=== PATIENT | female | born 1960 | race Caucasian/White ===

== ENCOUNTER 2023-03-07 01:39 | Day surgery (SDC) | payer OTHER, SELFPAY ==
[2023-02-23 13:46] VITALS: BMI 33.3
[2023-03-07 09:47] VITALS: BP 141/80; PULSE 88; RESP 18; TEMP 36.1; O2SAT 97
[2023-03-07] MEDS: LACTATED RINGERS 1,000 ML 150 ML IV CONT (10:06)
--- NOTE | 2023-03-07 10:24 | PM.HPGS ---
History of Present Illness History of Present Illness Consent: Risks, benefits, and alternatives have been discussed and questions answered. Patient agrees to proceed with procedure. Chief complaint: hx colon polyps Narrative: Herlinda Escobar is a 62 year old female Presents for screening colonoscopy. Patient's current weight appetite and bowel movements are normal. Patient denies abdominal pain. she has had no bleeding. Family history noncontributory. Patient does have a history of adenomatous colon polyp removed the time of colonoscopy in 2017. Review of Systems Review of Systems: Review of systems noncontributory. [facility] Surgical History Surgical History (Updated 03/01/23 @ 10:05 by Gabby Lacy, DOMINICK) History of endometrial ablation Family History Family History Mother Breast cancer Diabetes mellitus Other Breast cancer Social History Social History Years smoked: 35 Smoking status: Former smoker Tobacco type: cigarettes Second hand tobacco smoke exposure: No Smoking end date: 12/18/12 Alcohol intake: current Drinks per week: 6 Alcohol use details: Ocassionally Weekends Substance use: never Substance use type: does not use Living arrangements: with family Occupation/Education: retired Gender identity (if verbalized by the patient): Female Sexual Orientation (if Verbalized by the Patient): Straight or Heterosexual Spiritual care concerns: No Agree to blood products: Yes Meds Home Medications and Allergies Home Medications Medication Instructions Recorded Confirmed Type lorazepam 1 mg tablet 1 mg PO TID PRN anxiety #50 tabs 07/19/22 03/01/23 Rx rosuvastatin 20 mg tablet 20 mg PO DAILY #90 tabs 02/24/23 03/07/23 Rx doxycycline hyclate 100 mg capsule 100 mg PO BID 7 days #14 caps 03/01/23 03/07/23 Rx Allergies Allergy/AdvReac Type Severity Reaction Status Date / Time No Known Allergies Allergy Verified 03/07/23 09:44 Vital Signs Vital Signs - 24 hr 03/07/23 09:47 Temperature 97 F L Pulse Rate 88 Respiratory Rate 18 Blood Pressure 141/80 H Pulse Oximetry 97 Oxygen Delivery Room Air Exam Narrative: Physical exam reveals patient to be alert. Vital signs stable. HEENT exam is unremarkable. Patient is anicteric. Lungs are clear to auscultation and percussion. Heart is without murmur or extra sounds. Abdomen bowel sounds are present soft nontender with no organomegaly. Digital external rectal exam is normal. Assessment and Plan Assessment and plan (1) History of colon polyps: Code(s): Z86.010 - Personal history of colonic polyps Status: Acute Assessment and Plan: Patient has a history of colon polyps. Plan for surveillance colonoscopy at 5 year intervals. Further recommendations may be given after endoscopy.
--- NOTE | 2023-03-07 10:45 | P.PNAN_ITS ---
Anes - Initial Pre Proc Eval Procedure: Operation Date: 03/07/23 11:00 Proposed Procedures p Colonoscopy - Dom Clark MD Date/Time: 03/07/23 10:45 Surgeon: Dom Clark MD Pre Op Diagnosis: hx colon polyps Patient Data Age: 62 Gender: F Height: 1.65 m Weight: 91.6 kg Last Vital Signs Temp 97 F L 03/07/23 09:47 Pulse 88 03/07/23 09:47 Resp 18 03/07/23 09:47 BP 141/80 H 03/07/23 09:47 Pulse Ox 97 03/07/23 09:47 O2 Del Method Room Air 03/07/23 09:47 Allergies Allergy/AdvReac Type Severity Reaction Status Date / Time No Known Allergies Allergy Verified 03/07/23 09:44 Home Medications Medication Instructions Recorded Confirmed Type lorazepam 1 mg tablet 1 mg PO TID PRN anxiety #50 tabs 07/19/22 03/01/23 Rx rosuvastatin 20 mg tablet 20 mg PO DAILY #90 tabs 02/24/23 03/07/23 Rx doxycycline hyclate 100 mg capsule 100 mg PO BID 7 days #14 caps 03/01/23 03/07/23 Rx Patient hx anesthesia problems: none Family hx anesthesia problems: none Results Review: All pre-operative results and documents have been reviewed as part of the pre- operative evaluation. [facility] Surgical History Surgical History (Updated 03/01/23 @ 10:05 by Gabby Lacy APRN) History of endometrial ablation Family History Family History Mother Breast cancer Diabetes mellitus Other Breast cancer Social History Social History Years smoked: 35 Smoking status: Former smoker Tobacco type: cigarettes Second hand tobacco smoke exposure: No Smoking end date: 12/18/12 Alcohol intake: current Drinks per week: 6 Alcohol use details: Ocassionally Weekends Substance use: never Substance use type: does not use Living arrangements: with family Occupation/Education: retired Gender identity (if verbalized by the patient): Female Sexual Orientation (if Verbalized by the Patient): Straight or Heterosexual Spiritual care concerns: No Agree to blood products: Yes Anes - Eval Final PreProcedure Day of Procedure 03/07/23 10:45 Patient weight: obese Heart: regular rate and rhythm Lungs: clear to auscultation Airway: Mallampati scale class II Neurological: alert and oriented Last oral intake: >/= 8 hours ASA classification: II Emergent: no Anesthetic plan: proceed Anesthesia type and monitoring: general GIVS and standard monitoring Results Review: All pre-operative results and documents have been reviewed as part of the pre- operative evaluation. Informed Consent: The patient's anesthetic plan and its attendant risks and benefits were discussed with the patient/family/POA. Questions were solicited and answers provided to the satisfaction of the patient/family/POA.
[2023-03-07 11:30] VITALS: BP 90/58; PULSE 69; RESP 25; O2SAT 97
[2023-03-07 11:40] VITALS: BP 105/83; PULSE 66; RESP 19; O2SAT 100
[2023-03-07 11:50] VITALS: BP 105/70; PULSE 68; RESP 25; O2SAT 100
== END 2023-03-07 11:50 | disposition home or self-care (01) ==
PROVIDERS: PCP Family Medicine Adolescent Medicine; Visit Provider Internal Medicine Gastroenterology
PROC: 0DJD8ZZ Inspection of Lower Intestinal Tract, Via Natural or Artificial Opening Endoscopic (ICD-10-PCS; CPT 45378; principal; 2023-03-07 11:00)
DX: Z12.11 Encounter for screening for malignant neoplasm of colon (principal); D12.3 Benign neoplasm of transverse colon; K64.8 Other hemorrhoids; Z87.891 Personal history of nicotine dependence; E66.9 Obesity, unspecified; Z68.33 Body mass index [BMI] 33.0-33.9, adult
CPT/HCPCS: 45385; 88305; J7120

== ENCOUNTER → 2023-03-09 08:56 | Outpatient (CLI) | payer OTHER, SELFPAY ==
--- NOTE | ~2023-03-09 | US_ITS ---
Pelvic ultrasound. Clinical History: Postmenopausal bleeding Technique: Realtime transabdominal and transvaginal scanning of the pelvis was performed. Color flow Doppler and Doppler spectral analysis were performed. Findings: The uterus is retroverted, and measures 5.8 x 2.6 x 3.8 cm. The endometrial stripe has a t hickness of 4 mm. No focal mass is identified. Neither ovary seen. No adnexal mass seen. There is no evidence of free fluid in the cul de sac. Impression: No abnormal endometrial thickening identified. Reviewed, dictated and finalized at location . Impression: No abnormal endometrial thickening identified.
== END ==
PROVIDERS: PCP Nurse Practitioner Family; Visit Provider Nurse Practitioner Family
DX: N95.0 Postmenopausal bleeding (principal)
CPT/HCPCS: 76830; 76856

== ENCOUNTER 2024-04-29 17:40 | Emergency (ER) | payer OTHER, SELFPAY ==
--- NOTE | ~2024-04-29 | XR_ITS ---
EXAM: XR hand RT min 3V, XR wrist RT min 3V DATE: 04/29/2024 18:35 HISTORY: animal bite . COMPARISON: None available. FINDINGS: Normal mineralization. Question of cortical irregularity along the dorsal aspect of the fi rst carpal row, possibly in the region of the triquetrum. No lytic or blastic lesion. Mild scattered degenerative change. No erosion or periosteal change. Skin defects along the dorsal and medial wrist and lateral to the first CMC joint. Radiographic detail obscured by overlying bandage material. IMPRESSION: Questionable cortical irregularity of the triquetrum, deep to a skin puncture/laceration. Consider CT of the wrist (or wrist and hand depending on the areas of superficial injury) to exclude osseous involvement. Reviewed, dictated and finalized at location K. E CIRCUIT OPERATOR IMPRESSION: Questionable cortical irregularity of the triquetrum, deep to a ski n puncture/laceration. Consider CT of the wrist (or wrist and hand depending on the areas of superficial injury) to exclude osseous involvement.
--- NOTE | ~2024-04-29 | CT_ITS ---
CT OF right hand EXAMINATION: CT hand RT wo con DATE: 04/29/2024 19:34 INDICATION: Animal bite TECHNIQUE: Computed tomography (CT) of the right hand was performed without intravenous contrast. Aut omated exposure control and iterative reconstruction technique were employed. The dose-length product was 592.07 mGy-cm. COMPARISON: X-ray right hand and wrist, same date FINDINGS: Skin defect over the dorsal, medial, and lateral wrist, with subcutaneous gas. Subcutaneous present along the dorsal aspect of the extensor tendons but not definitively within the tendons or t endon sheaths. No intra-articular gas. Normal mineralization. No fracture or dislocation. Mild scatte red degenerative changes. IMPRESSION: No acute osseous finding in the left hand. Skin defects and subcutaneous gas present along the medial, dorsal, and lateral wrist. The prior radiographic findings were likely related to degenerative changes. Reviewed, dictated and finalized at [facility] K. BAG MACHINE TENDER
[2024-04-29 17:53] VITALS: BP 146/96; PULSE 113; RESP 16; TEMP 36.5; O2SAT 99
[2024-04-29] MEDS: ONDANSETRON INJ 4 MG/2 ML VIAL IV PUSH (18:10)
[2024-04-29] MEDS: MORPHINE SULFATE (*CRX) 4 MG/ML INJ IV PUSH (18:11)
[2024-04-29] MEDS: WATER FOR IRRIGATION, STERILE 500 ML BOTTLE (18:26)
--- NOTE | 2024-04-29 19:57 | ED.ANIMALBIT ---
HPI - Animal Bite General Chief Complaint: Animal Bite Stated Complaint: dog bite Time Seen by Provider: 04/29/24 19:01 History of Present Illness HPI narrative: 63-year-old female presenting for evaluation of multiple dog bites to her right hand. She states she was trying to break up a fight between her to domestic a dogs. She sustained a laceration to the right wrist and 3 additional small ulcerations to the dorsum of the right hand. She is not up-to-date on her vaccines but the dogs are including rabies. Patient states her pain is minimal but she does have an open wound to her right upper extremity with exposed musculature and fatty tissue, no obvious tendinopathy or tendon injury. She has full range of motion of the right hand without any sensory deficits or motor deficits. This occurred approximately 30-40 minutes prior to arrival. Related Data Home Medications ?Medication ?Instructions ?Recorded ?Confirmed ?Last Taken ?Type Semaglutide 5 ml subcut 02/28/24 02/28/24 Unknown History Allergies Allergy/AdvReac Type Severity Reaction Status Date / Time No Known Allergies Allergy Verified 02/28/24 09:52 Review of Systems Review of Systems: As reviewed above in HPI [facility] Surgical History Surgical History History of endometrial ablation Family History Family History Mother Breast cancer Diabetes mellitus Lung cancer Other Breast cancer Father Lung cancer Sibling Lung cancer Social History Social History Years smoked: 35 Smoking status: Former smoker Tobacco type: cigarettes Second hand tobacco smoke exposure: No Smoking end date: 12/18/12 Alcohol intake: current Drinks per week: 6 Alcohol use details: Ocassionally Weekends Substance use: never Substance use type: does not use Living arrangements: with family Occupation/Education: retired Gender identity (if verbalized by the patient): Female Sexual Orientation (if Verbalized by the Patient): Straight or Heterosexual Spiritual care concerns: No Agree to blood products: Yes Exam Narrative: GENERAL: [Well-appearing, well-nourished, and in no acute distress.] HEAD: [Normocephalic, atraumatic.] EYES: [PERRLA and EOMI.] ENT: Nares clear, no rhinorrhea or epistaxis. Mucous membranes moist. NECK: Supple. CHEST: [Clear to auscultation. No respiratory distress.] HEART: [Regular rate and rhythm]. No murmur heard. [Normal peripheral pulses.] ABDOMEN: [Soft, nondistended], [nontender], [No rigidity or guarding] EXTREMITIES: Full range of motion of the right upper extremity, able to flex and extend at each digit and joint of the right hand including MCP PIP and D IP joints equal and symmetrically compared to the left hand. Able to make an okay sign, thumbs up sign and oppose each digit without difficulty. Able to ulnar and radial deviate the wrist, flex and extend at the wrist. No appreciable weakness in any of the major muscle groups. SKIN: Large gash of approximately 6 cm to the dorsum of the right hand on the ulnar aspect that does not cross into the palmar surface. Exposed musculature and soft tissues underneath but no obvious tendon exposure or tendon injury. Three linear lacerations measuring 4, 5 and 6 cm respectively over the radial aspect of the dorsum of the right hand without as deep of involvement, more superficial but do expose the subcutaneous tissue and fat with the larger wound exposing musculature and no obvious tendon injury or exposure. NEURO: [No focal deficits]. Alert and oriented [x3.] PSYCH: [Normal mood and affect.] Course Vital Signs Vital signs: Vital Signs Temperature 36.5 C 04/29/24 17:53 Pulse Rate 113 H 04/29/24 17:53 Respiratory Rate 16 04/29/24 17:53 Blood Pressure 146/96 H 04/29/24 17:53 Pulse Oximetry 99 04/29/24 17:53 Temperature 36.5 C 04/29/24 17:53 Pulse Rate 97 04/29/24 22:29 Respiratory Rate 14 04/29/24 22:29 Blood Pressure 138/86 04/29/24 22:29 Pulse Oximetry 100 04/29/24 22:29 Procedures Laceration Laceration 1: Date: 04/29/24 Time: 20:37 Site: hand Side (If applicable): right Size (cm): 6 Description: linear and contaminated Depth: involves muscle layer and involves tendon Local Anesthetic: lidocaine 2% Amount of anesthesia used (mL): 10 Pre-repair: wound explored, irrigated extensively, minor debridement and deep structures intact ====== Skin Level ====== Skin layer closed with: nylon Size (cm): 5-0 Number of sutures: 9 Technique: simple, interrupted ====== Subcutaneous Layer ====== ====== Muscle Layer ====== Muscle layer closed with: vicryl Size: 5-0 Number of sutures: 3 Technique: simple, interrupted ====== Tendon Layer ====== Dressing: Sterile dressing and Jose wrap Laceration 2: Date: 04/29/24 Time: 20:37 Site: hand Side (If applicable): right Size (cm): 6 Description: linear and contaminated Depth: involves muscle layer Local Anesthetic: lidocaine 2% Amount of anesthesia used (mL): 5 Pre-repair: wound explored, irrigated extensively, minor debridement and deep structures intact ====== Skin Level ====== Skin layer closed with: nylon Size (cm): 5-0 Number of sutures: 8 Technique: simple, interrupted ====== Subcutaneous Layer ====== ====== Muscle Layer ====== ====== Tendon Layer ====== Dressing: Sterile bandage and gauze and Jose wrap Laceration 3: Date: 04/29/24 Time: 20:37 Site: hand Side (If applicable): right Size (cm): 5 Description: linear Depth: simple, single layer Local Anesthetic: lidocaine 2% Amount of anesthesia used (mL): 5 Pre-repair: wound explored, irrigated extensively and minor debridement ====== Skin Level ====== Skin layer closed with: nylon Size (cm): 5-0 Number of sutures: 7 Technique: simple, interrupted ====== Subcutaneous Layer ====== ====== Muscle Layer ====== ====== Tendon Layer ====== Dressing: Sterile dressing and Jose wrap Laceration 4: Date: 04/29/24 Time: 20:37 Site: hand Side (If applicable): right Size (cm): 4 Description: linear and clean Depth: simple, single layer Local Anesthetic: none Pre-repair: wound explored and irrigated ====== Skin Level ====== Skin layer closed with: other (No significant subcutaneous involvement, left open per recommendations by Hand surgery and bandage applied over top with sterile gauze and dressing) ====== Subcutaneous Layer ====== ====== Muscle Layer ====== ====== Tendon Layer ====== MDM - Animal Bite MDM Narrative Medical decision making narrative: 63-year-old female presenting with dog bite to her right hand with a total of 4 lacerations as described above. She is not up-to-date on her tetanus but the animals involved are domestic iand up to date on rabies vaccines. No pain or appreciable weakness or sensory deficits. She has full range of motion of the hand and digits. No restricted range of motion or any tendinopathy, weakness or any sensory deficits on her neurological and musculoskeletal examination. She is neurovascularly intact. She otherwise appears well not any acute pain at this time. The wounds will require extensive irrigation and closure most likely loose approximation based on the area of involvement. Will provide Augmentin for antibiotic coverage. X-rays were obtained which shows a potential triquetrum injury so a CT scan was recommended. CT scan without contrast the wrist was obtained. Patient's hand CT shows no acute osseous findings, skin defects and subcutaneous air along the medial dorsal and lateral wrist. Given patient's significant depth of injury and expose musculature I discussed the case with Hand surgery over at [facility] given that we do not have coverage here at the hospital at this time. Together we went over the patient's imaging studies, clinical assessment, plan of care going forward. Recommendations given the injury are to place the patient on Augmentin antibiotics and close the wound primarily with outpatient clinic follow-up instructions as well as strict return precautions. I discussed the case with the surgeon Dr. Puente at [facility] in [place]. I relayed this information to the patient and our plan going forward will be to primarily repair her injuries here. Please refer to extensive repair conducted above the procedure notes. Patient tolerated the procedure well and at this time is stable for discharge home with Augmentin and close hand surgery follow-up and clinic information. She was given very strict return precautions including developing increased pain or swelling in the digits, purulent drainage, signs of infection, redness, fever or any other concerns such as neuropathy or weakness in the hand. Patient verbalized understanding of these instructions and was stable for discharge home at this time. Differential Diagnosis Differential diagnosis: Likely bite by animal, dog bite and other Medical Records Attestation: I reviewed the patient's medical records. Imaging Data Attestation: I personally reviewed and interpreted this imaging study as follows: My impression: Impressions Hand X-Ray 04/29/24 18:48 IMPRESSION: Questionable cortical irregularity of the triquetrum, deep to a skin puncture/laceration. Consider CT of the wrist (or wrist and hand depending on the areas of superficial injury) to exclude osseous involvement. Wrist X-Ray 04/29/24 18:48 IMPRESSION: Questionable cortical irregularity of the triquetrum, deep to a skin puncture/laceration. Consider CT of the wrist (or wrist and hand depending on the areas of superficial injury) to exclude osseous involvement. Hand CT 04/29/24 19:51 IMPRESSION: No acute osseous finding in the left hand. Skin defects and subcutaneous gas present along the medial, dorsal, and lateral wrist. The prior radiographic findings were likely related to degenerative changes. Discharge Plan Discharge Clinical Impression: Dog bite of dorsum of hand, Complicated laceration of hand, Laceration of multiple sites of left hand and wrist Patient Disposition: Home, Self-Care Condition: Stable Instructions: Antibiotic Form, Animal Bite (ED), Care For Your Stitches (ED), Laceration (ED) Additional Instructions: Your wounds were repaired with extensive laceration stitches. Your imaging studies do not show any broken bones or 4 material. We have which on antibiotics that he need to complete the entirety of the course of. Follow-up in 7-10 days with the hand surgeon that we have referred you to. We also did speak to the [facility] orthopedic doctor who was covering hand surgery. You will also be able to follow-up with them if you cannot get an appointment with our plastic surgeon. If you develop any kind of pus, drainage, weakness, fever or any other concerning symptoms please return emergently to the ED. follow-up for wound care, wound evaluation and stitch removal in 7-10 days. Patient Language: Burmese Prescriptions: New amoxicillin-pot clavulanate 875-125 mg tablet 1 tablet PO Q12H 7 Days Qty: 14 0RF No Action Semaglutide 2.4 mL 5 ml subcut rosuvastatin 20 mg tablet See Rx Instructions .ROUTE .COMPLEX Qty: 90 3RF Dose Instruction: TAKE 1 TABLET DAILY Rx Instructions: TAKE 1 TABLET DAILY lorazepam 1 mg tablet 1 mg PO TID PRN (Reason: anxiety) Qty: 50 2RF Follow-up/Referrals: Howard Arreola MD [Physician] - 1 Week (Dog bite, wound evaluation, complicated repair) Gabby Lacy APRN [Primary Care Provider] - Time of Disposition: 22:02
[2024-04-29] MEDS: AMOXICILLIN/CLAVULANATE K 875-125 MG TAB 1 TABLET PO (20:18)
[2024-04-29] MEDS: TETANUS,DIPHTHERIA,AC PERTUSSIS ADULT (0.5 ML) BOOSTRIX IM (20:18)
[2024-04-29] MEDS: LIDOCAINE 1% LOCAL INJ 10 ML VIAL INFILTRATE (21:45)
[2024-04-29] MEDS: LIDOCAINE 2% LOCAL INJ 20 ML VIAL (21:45)
[2024-04-29 22:29] VITALS: BP 138/86; PULSE 97; RESP 14; O2SAT 100
--- OUTSIDE RECORDS SUMMARY | 2024-05-05 01:09 | XMS_ITS | Clinical Summary ---
Author Organization [facility] Address [address] [place] [address]. [place] [address] [place] [address] Care Team Providers Care Leather Lacer Name Role Phone Meche Gann MD Primary Care Provider [phone] Encounters Date Type Department Care Team Description 04/18/2024 10:32 AM FUR BLENDER - 04/18/2024 11:59 PM FUR BLENDER Hospital Encounter [facility] Mammography [address] [place] [address] Meche Gann MD Discharge Disposition: Home or Self Care (Routine Discharge) 04/18/2024 Travel from Last 3 Months Family History Medical History Relation Comments Breast Cancer Maternal Aunt 1 Breast Cancer Maternal Aunt 2 age of onset unk nown Breast Cancer Mother Relation Status Comments Maternal Aunt 1 Maternal Aunt 2 Mother Social History Tobacco Use Types Packs/Day Years Used Date Smoking Tobacco: Never Assessed Comments Unknown Sex and Gender Information Value Date Recorded Sex Assigned at Not on file Legal Sex Female 6:47 PM CDT Gender Identity Not on file Sexual Orientation Not on file Plan of Treatment Upcoming Encounters Date Type Department Care Team (Late st Contact Info) Description 05/18/2024 10:00 AM FUR BLENDER Appointment [facility] [place] [address] Gabby Lacy, QUEBRACHO TANNER [address] [place] [address] 05/18/2024 10:30 AM FUR BLENDER Appointment [facility] Mammography [address] [address] Gabby Lacy, QUEBRACHO TANNER [address] [place], [place] [id number] Health Maintenance Due Date Last Done Comments Cervical Cancer Screening Pap Smear (Age 30 to 64) Every 3 Years 1961 Colorectal Cancer Screening Colonoscopy (10 Years) 1961 Annual Physical 1964 Hepatitis C 09/30/1979 DTaP, Tdap and Td Vaccines (1 - Tdap) 1980 Cervical Cancer Screening Pap with HPV Testing (Age 30 to 64) Every 5 Years 09/30/1991 Cervical Cancer Screening with HPV 09/30/1991 Zoster Vaccines (1 of 2) 09/30/2011 COVID-19 Vaccine ( season) 2024 04/28/2021, 08/26/2020, 07/29/2020 Mammogram Screening 04/18/2026 04/18/2024, 02/28/2023, 01/07/2022, Additional history exists RSV Immunization or 60+ Years (1 - 1-dose 75+ series) 2036 Influenza Adult Completed 03/06/2024, 04/15, 03/04/2020 Meningococcal Vaccine Aged Out No jacob dorita eligible based on patient's age to complete this topic Pneumococcal Vaccine: Pediatrics (0 to 5 Years) and At-Risk Patients (6 to 64 Years) Aged Out No longer eligible based on patient's age to complete this topic RSV Immunizations Under 20 Months Aged Out No longer eligible based on patient's age to complete this topic Procedures Procedure Name Priority Date/Time Associated Diagnosis Comments MG SCREENING W AVIVA WANDA DIGI Routine 04/18/2024 10:50 AM FUR BLENDER Encounter for screening mammogram for malignant neoplasm of breast from Last 3 Months Results * MG SCREENING W AVIVA WANDA DIGI (04/18/2024 10:50 AM FUR BLENDER) Anatomical Region Laterality Modality Breast Bilateral Mammography 04/18/2024 3:08 PM FUR BLENDER Impressions 04/18/2024 3:15 PM FUR BLENDER ===== IMPRESSION: ===== 1. ??Stable mammographic appearance with no new findings to suggest malignancy in either breast. Assessment: ACR BI-RADS 2 - BENIGN FINDING(S) Recommendation: 1:Routine Screening Bilateral Comments: Ordered By: MECHE GANN Interpreted By: Sebastian Ramirez, 04/18/2024 3:08 PM Narrative 04/18/2024 3:15 PM FUR BLENDER [address] [address] EXAMINATION: Digital bilateral screening mammogram with 3-D tomosynthesis EXAM DATE/TIME: 04/18/2024 10:33 AM REASON FOR EXAM: ??Routine screening ?? Benign left-sided stereotactic biopsy in 2006. Breast carcinoma in mother at age 67 maternal aunt at age 60. COMPARISON: 01/07/2022. 02/28/2023 Technique: Digital screening mammography of both breasts was performed in addition to 3-D Tomosynthesis technique. This study was read with the assistance of a computer-aided detection system. Tissue density: The breasts are heterogeneously dense, which may obscure small masses. Findings: Left breast biopsy clip. There is no new focal asymmetry, dominant mass lesion, area of skin thickening, or cluster of suspicious appearing calcifications in either breast to suggest malignancy. us Meche Gann MD MAMMO Final Resu lt from Last 3 Months Insurance [facility] Care Teams Leather Lacer Relationship Specialty Start Date End Date Meche Gann MD [phone] [address] PCP - General 10/14/16
--- OUTSIDE RECORDS SUMMARY | 2024-05-05 01:10 | XMS_ITS | Encounter Summary ---
Author Organization [facility] Address [address] [place] [address]. [place], [place] [phone] [place] [address] Care Team Providers Care Cord Splicer Name Role Phone Ramiro Gann MD Primary Care Provider +1- [phone] Encounter Details Date Type Department Care Team (Latest Contact Info) Description 01/07/2022 Travel Social History Tobacco Use Types Packs/Day Years Used Date Smoking Tobacco: Never Assessed Comments Unknown Sex and Gender Information Value Date Recorded Sex Assigned at Not on file Legal Sex Female 6:47 PM CDT Gender Identity Not on file Sexual Orientation Not on file COVID-19 Exposure Response Date Recorded In the last 10 days, have yo u been in contact with someone who was confirmed or suspected to have Coronavirus/COVID-19? No / Unsure 01/07/2022 9:30 AM CDT documented as of this encounter Plan of Treatment Upcoming Encounters Date Type Department Care Team (Late st Contact Info) Description 05/18/2024 10:00 AM ELECTRIC BLANKET WIRER [place]ment [place] [address] Gabby Lacy, BLEACHER [place] PULP [address] [place] [address] 05/18/2024 10:30 AM ELECTRIC BLANKET WIRER Appointment [place] [address] Gabby Lacy, BLEACHER [place] PULP [address] [place] [address] documented as of this encounter Visit Diagnoses Not on filedocumented in this encounter Care Teams Cord Splicer Relationship Specialty Start Date End Date Ramiro Gann MD [address] [address] PCP - General 10/14/16 documented as of this encounter
--- OUTSIDE RECORDS SUMMARY | 2024-05-05 01:10 | XMS_ITS | Encounter Summary ---
Author Organization [facility] Address [address] [place] [address]. [place], [place] [address] [place] [address] Care Team Providers Care Final Assembler Boat Name Role Phone Ramiro Gann MD Primary Care Provider +1- [phone] Encounter Details Date Type Department Care Team (Latest Contact Info) Description 02/28/2023 Travel Social History Tobacco Use Types Packs/Day Years Used Date Smoking Tobacco: Never Assessed Comments Unknown Sex and Gender Information Value Date Recorded Sex Assigned at Not on file Legal Sex Female 6:47 PM CDT Gender Identity Not on file Sexual Orientation Not on file documented as of this encounter Plan of Treatment Upcoming Encounters Date Type Department Care Team (Late st Contact Info) Description 05/18/2024 10:00 AM COVER INSPECTOR [place]ment [place] [address] Gabby Lacy MACHINE GROUP LEADER [address] [place], [place] [id number] 05/18/2024 10:30 AM COVER INSPECTOR Appointment [place] [address] Gabby Lacy NP [address] [place], [place] [phone] documented as of this encounter Visit Diagnoses Not on filedocumented in this encounter Care Teams Final Assembler Boat Relationship Specialty Start Date End Date Ramiro Gann MD [address] [address] PCP - General 10/14/16 documented as of this encounter
--- OUTSIDE RECORDS SUMMARY | 2024-05-05 01:10 | XMS_ITS | Encounter Summary ---
Author Organization [facility] Address [address] [place] [address]. [id number] [place] [address] Care Team Providers Care Installation Tech Name Role Phone Meche Gann MD Primary Care Provider +1- [phone] Reason for Referral * Imaging (Routine) - New Request Specialty Diagnoses / Procedures Referred By Rekha vilchis Referred To Contact RADIOLOGY Diagnoses Encounter for screening mammogram for malignant neoplasm of breast Procedures MG SCREENING W Meche Griffin MD [address] [place] [address] Phone: tel: fax: Referral ID Status Reason Start Date Expiration Date V isits Requested Visits Authorized [id number] New Request 04/13/2024 06/13/2025 1 1 RECONDITIONER Reason for Visit * Imaging (Routine) - New Request Specialty Diagnoses / Procedures Referred By Rekha vilchis Referred To Contact RADIOLOGY Diagnoses Encounter for screening mammogram for malignant neoplasm of breast Procedures MG SCREENING W Meche Griffin MD [address] [place] [address] Phone: tel: fax: Referral ID Status Reason Start Date Expiration Date V isits Requested Visits Authorized [id number] New Request 04/13/2024 06/13/2025 1 1 Encounter Details Date Type Department Care Team (Latest Contact Info) Description 04/18/2024 10:32 AM SHOE RECONDITIONER - 04/18/2024 11:59 PM SHOE RECONDITIONER Hospital Encounter [facility] Mammography [address] [place] [address] Meche Gann MD [address] [address] Discharge Disposition: Home or Self Care (Routine Discharge) Social History Tobacco Use Types Packs/Day Years [...] st Contact Info) Description 05/18/2024 10:00 AM SHOE RECONDITIONER Appointment [facility] [place] [address] Gabby Lacy, MANAGER LICENSING [address] [place] [address] 05/18/2024 10:30 AM SHOE RECONDITIONER Appointment [facility] [place] [address] Gabby Lacy, MANAGER LICENSING [address] [place] [address] documented as of this encounter Procedures Procedure Name Priority Date/Time Associated Diagnosis Comments MG SCREENING W AVIVA WANDA DIGI Routine 04/18/2024 10:50 AM SHOE RECONDITIONER Encounter for screening mammogram for malignant neoplasm of breast documented in this encounter Results * MG SCREENING W AVIVA WANDA DIGI (04/18/2024 10:50 AM SHOE RECONDITIONER) Anatomical Region Laterality Modality Breast Bilateral Mammography 04/18/2024 3:08 PM SHOE RECONDITIONER Impressions 04/18/2024 3:15 PM SHOE RECONDITIONER ===== IMPRESSION: ===== 1. ??Stable mammographic appearance with no new findings to suggest malignancy in either breast. Assessment: ACR BI-RADS 2 - BENIGN FINDING(S) Recommendation: 1:Routine Screening Bilateral Comments: Ordered By: MECHE GANN Interpreted By: Sebastian Ramirez, 04/18/2024 3:08 PM Narrative 04/18/2024 3:15 PM SHOE RECONDITIONER [address] [id number] EXAMINATION: Digital bilateral screening mammogram with 3-D [...] calcifications in either breast to suggest malignancy. Meche Gann MD MAMMO Final Resu lt documented in this encounter Visit Diagnoses Diagnosis Encounter for screening mammogram for malignant neoplasm of breast Other screening mammogram documented in this encounter Care Teams Installation Tech Relationship Specialty Start Date End Date Meche Gann MD [address] [place] [address] PCP - General 10/14/16 documented as of this encounter
--- OUTSIDE RECORDS SUMMARY | 2024-05-05 01:10 | XMS_ITS | Encounter Summary ---
Author Organization [facility] Address [address] [place] [address]. [place], [place] [address] [place] [address] Care Team Providers Care Senior Drafter Name Role Phone Meche Gann MD Primary Care Provider +1- [phone] Reason for Referral * Imaging (Routine) - Closed Specialty Diagnoses / Procedures Referred By Rekha vilchis Referred To Contact RADIOLOGY Diagnoses Visit for screening mammogram Procedures MG SCREENING W Mehce Griffin MD [address] [place] [address] Phone: tel: fax: Referral ID Status Reason Start Date Expiration Date Visits Re quested Visits Authorized [id number] Closed 02/09/2023 04/11/2024 1 1 Reason for Visit * Imaging (Routine) - Closed Specialty Diagnoses / Procedures Referred By Rekha vilchis Referred To Contact RADIOLOGY Diagnoses Visit for screening mammogram Procedures MG SCREENING W Meche Griffin MD [address] [place] [address] Phone: tel: fax: Referral ID Status Reason Start Date Expiration Date Visits Re quested Visits Authorized [id number] Closed 02/09/2023 04/11/2024 1 1 Encounter Details Date Type Department Care Team (Latest Contact Info) Description 02/28/2023 9:44 AM CDT - 02/28/2023 11:59 PM CDT Hospital Encounter [facility] Mammography [address] [place] [address] Meche Gann MD [address] [place] [id number] Discharge Disposition: Home or Self Care (Routine [...] st Contact Info) Description 05/18/2024 10:00 AM CLOTH REELER Appointment [place] [address] Gabby Lacy GEAR HOBBER OPERATOR [address] [place] [address] 05/18/2024 10:30 AM CLOTH REELER Appointment [facility] [address] Gabby Lacy GEAR HOBBER OPERATOR [address] [place] [address] documented as of this encounter Procedures Procedure Name Priority Date/Time Associated Diagnosis Comments MG SCREENING W AVIVA WANDA DIGI Routine 02/28/2023 9:56 AM CDT Visit for screening mammogram documented in this encounter Results * MG SCREENING W AVIVA WANDA DIGI (02/28/2023 9:56 AM CDT) Anatomical Region Laterality Modality Breast Bilateral Mammography 02/28/2023 2:12 PM CDT Narrative 02/28/2023 2:13 PM CDT Examination: Digital screening mammogram with CAD. Clinical history: Asymptomatic patient presents for routine screening. Comparison: 01/07/2022, 03/06/2020, 10/25/2017, 10/14/2016. Technique: Bilateral digital mammograms. The exam was interpreted with the use of a computer-aided detection (CAD) system. ??Additional 3-D tomosynthesis images were acquired. Tissue density: The breast tissue is heterogeneously dense. Findings: The breast tissue is heterogeneously dense. The dense tissue may obscure some lesions mammographically. ?? Benign-appearing calcification noted. Metallic ring biopsy marker on the left again evident. No suspicious mass, microcalcification or area of architectural distortion can be identified. From a mammographic standpoint, routine followup in one year would seem adequate. IMPRESSION: No suspicious change since the previous exams. Recommendation: 1: Routine Screening ??Bilateral ??in 1 Year Assessment: ACR BI-RADS 2 - BENIGN FINDING(S) Ordered By: MECHE GANN Interpreted By: Jah Sierra MD, 02/28/2023 2:12 PM Meche Gann MD MAMMO Final Resu lt documented in this encounter Visit Diagnoses Diagnosis Visit for screening mammogram Other screening mammogram documented in this encounter Care Teams Senior Drafter Relationship Specialty Start Date End Date Meche Gann MD [address] [address] PCP - General 10/14/16 documented as of this encounter
--- OUTSIDE RECORDS SUMMARY | 2024-05-05 01:11 | XMS_ITS | Encounter Summary ---
Author Organization [facility] Address [address] [place] [address]. [place], [place] [address] [place] [address] Care Team Providers Care Sales Representative [employer] Name Role Phone Ramiro Gann MD Primary Care Provider + [phone] Ramiro Gann MD Primary Care Provider + [phone] Ramiro Gann MD Primary Care Provider + [phone] Ramiro Gann MD Primary Care Provider + [phone] Ramiro Gann MD Primary Care Provider + [phone] Ramiro Gann MD Primary Care Provider +- [phone] Encounter Details Date Type Department Care Team (Late st Contact Info) Description 03/02/2007 Abstract [facility] [address] [place] [address] Thong Marie MD [address] [id number] Social History Tobacco Use Types Packs/Day Years Used Date Smoking Tobacco: Never Assessed Comments Unknown Sex and Gender Information Value Date Recorded Sex Assigned at Not on file Legal Sex Female 6:47 PM CDT Gender Identity Not on file Sexual Orientation Not on file documented as of this encounter Plan of Treatment Upcoming Encounters Date Type Department Care Team (Late Contact Info) Description 05/18/2024 10:00 AM DIRECTOR OF AGRONOMY Appointment [facility] [place] [address] Gabby Lacy, REGISTRAR COLLEGE OR UNIVERSITY [address] [place] [address] 05/18/2024 10:30 AM DIRECTOR OF AGRONOMY Appointment [facility] [place] [address] Gabby Lacy, REGISTRAR COLLEGE OR UNIVERSITY [address] [place] [address] documented as of this encounter Visit Diagnoses Not on filedocumented in this encounter Care Teams Sales Representative [employer] Relationship Specialty Start Date End Date Ramiro Gann MD [address] [place] [address] PCP - General 10/14/16 Ramiro Gann MD [address] [place] [address] PCP - General 10/03/15 10/13/16 Ramiro Gann MD [address] [place] [address] PCP - General 09/26/14 10/02/15 Ramiro Gann MD [address] [place] [address] PCP - General 05/10/14 09/25/14 Ramiro Gann MD [address] [place] [address] PCP - General 05/03/14 05/09/14 Ramiro Gann MD [address] [place] [address] [place] [address] PCP - General 03/09/13 05/02/14 documented as of this encounter
--- OUTSIDE RECORDS SUMMARY | 2024-05-05 01:11 | XMS_ITS | Encounter Summary ---
Author Organization [facility] Address [address] [place] [address]. [employer] [place], [place] [address] [place] [address] Care Team Providers Care Tool Grinder Operator External Name Role Phone Ramiro Gann MD Primary Care Provider +1- [phone] Encounter Details Date Type Department Care Team (Latest Contact Info) Description 03/06/2020 Travel Social History Tobacco Use Types Packs/Day Years Used Date Smoking Tobacco: Never Assessed Comments Unknown Sex and Gender Information Value Date Recorded Sex Assigned at Not on file Legal Sex Female 6:47 PM CDT Gender Identity Not on file Sexual Orientation Not on file COVID-19 Exposure Response Date Recorded In the last month, have you been in contact with someone who was confirmed or suspected to have Coronavirus / COVID-19? No / Unsure 03/06/2020 2:33 PM CDT documented as of this encounter Plan of Treatment Upcoming Encounters Date Type Department Care Team (Late st Contact Info) Description 05/18/2024 10:00 AM NETWORK ENGINEER ADMINISTRATOR [place]ment [place] [address] Gabby Lacy, CUSTOM SHOE DESIGNER AND MAKER [address] [place], [place] [address] 05/18/2024 10:30 AM NETWORK ENGINEER ADMINISTRATOR Appointment [facility] [address] Gabby Lacy, CUSTOM SHOE DESIGNER AND MAKER [address] [place], [place] [phone] documented as of this encounter Visit Diagnoses Not on filedocumented in this encounter Care Teams Tool Grinder Operator External Relationship Specialty Start Date End Date Ramiro Gann MD [address] [address] PCP - General 10/14/16 documented as of this encounter
--- OUTSIDE RECORDS SUMMARY | 2024-05-05 01:11 | XMS_ITS | Encounter Summary ---
Author Organization [facility] Address [address] [place] [address]. [place], [place] [address] [place] [address] Care Team Providers Care General Repairer Name Role Phone Ramiro Gann MD Primary Care Provider + [phone] Ramiro Gann MD Primary Care Provider + [phone] Ramiro Gann MD Primary Care Provider + [phone] Ramiro Gann MD Primary Care Provider + [phone] Ramiro Gann MD Primary Care Provider + [phone] Ramiro Gann MD Primary Care Provider +- [phone] Encounter Details Date Type Department Care Team (Late st Contact Info) Description 03/09/2013 Abstract [facility] Diagnostic Imaging [address] [place] [address] Thong Marie MD [address] [id number] Social History Tobacco Use Types Packs/Day Years [...] (Late Contact Info) Description 05/18/2024 10:00 AM PLANT ELECTRICIAN Appointment [facility] [place] [address] Gabby Lacy, HEAD OF MOBILE [address] [place] [address] 05/18/2024 10:30 AM PLANT ELECTRICIAN Appointment [facility] [address] Gabby Lacy, HEAD OF MOBILE [address] [place] [address] documented as of this encounter Visit Diagnoses Diagnosis Encounter for screening mammogram for high-risk patient documented in this encounter Care Teams General Repairer Relationship Specialty Start Date End Date Ramiro Gann MD [address] [place] [address] PCP - General 10/14/16 Ramiro Gann MD [address] [place] [address] PCP - General 10/03/15 10/13/16 Ramiro Gann MD [address] [place] [address] PCP - General 09/26/14 10/02/15 Ramiro Gann MD [address] [place] [address] PCP - General 05/10/14 09/25/14 Ramiro Gann MD [address] [place] [address] PCP - General 05/03/14 05/09/14 Ramiro Gann MD [address] [address] PCP - General 03/09/13 05/02/14 documented as of this encounter
--- OUTSIDE RECORDS SUMMARY | 2024-05-05 01:11 | XMS_ITS | Encounter Summary ---
Author Organization [facility] Address [facility] [place] [address] [place] [address] Care Team Providers Care Executive Administrator Name Role Phone Ramiro Gann MD Primary Care Provider + [phone] Ramiro Gann MD Primary Care Provider + [phone] Ramiro Gann MD Primary Care Provider + [phone] Ramiro Gann MD Primary Care Provider + [phone] Encounter Details Date Type Department Care Team (Late st Contact Info) Description 05/10/2014 Abstract [facility] Diagnostic Imaging [address] [place], [place] [phone] Ramiro Gann MD [address] [address] Social History Tobacco Use Types Packs/Day Years [...] st Contact Info) Description 05/18/2024 10:00 AM PROCESS PROJECT ENGINEER Appointment [place] [address] Gabby Lacy, OB/GYN PHYSICIAN [address] [place] [address] 05/18/2024 10:30 AM PROCESS PROJECT ENGINEER Appointment [facility] Mammography [address] [place] [address] Gabby Lacy, OB/GYN PHYSICIAN [address] [place] [address] documented as of this encounter Visit Diagnoses Diagnosis Other breast disorders documented in this encounter Care Teams Executive Administrator Relationship Specialty Start Date End Date Ramiro Gann MD [address] [address] PCP - General 10/14/16 Ramiro Gann MD [address] [address] PCP - General 10/03/15 10/13/16 Ramiro Gann MD [address] [address] PCP - General 09/26/14 10/02/15 Ramiro Gann MD [address] [address] PCP - General 05/10/14 09/25/14 documented as of this encounter
--- OUTSIDE RECORDS SUMMARY | 2024-05-05 01:11 | XMS_ITS | Encounter Summary ---
Author Organization [facility] Address [address] [place] [address]. [place], [place] [address] [place] [address] Care Team Providers Care Filter Filler Name Role Phone Ramiro Gann MD Primary Care Provider +1- [phone] Encounter Details Date Type Department Care Team (Late st Contact Info) Description 03/24/2020 Patient Self-Triage [facility] [address] [place] [address] [facility] Provider Social History Tobacco Use Types Packs/Day Years [...] st Contact Info) Description 05/18/2024 10:00 AM MAINFRAME SYSTEMS PROGRAMMER Appointment [facility] [address] [place], [place] [phone] Gabby Lacy NP [address] [place] [id number] 05/18/2024 10:30 AM MAINFRAME SYSTEMS PROGRAMMER Appointment [facility] [address] Regino Gabby L, BACTERIOLOGY TECHNICIAN [address] [place] [address] documented as of this encounter Results * (ABNORMAL) CORONAVIRUS (COVID 19) [facility] (03/26/2020 10:49 AM MAINFRAME SYSTEMS PROGRAMMER) CORONAVIRUS SARS COV 2 PCR (RESP) Detected (AA) Not Detected [facility] Comment: This test has not been cleared or approved for diagnostic use by the U.S. Food and Drug Administration. This test has been authorized by FDA under an EUA for use by authorized laboratories. This test has been authorized only for the detection of RNA from SARS-CoV-2 virus and diagnosis of SARS-CoV-2 virus infection, not for any other viruses or pathogens. This test is only authorized for the duration of the declaration that circumstances exist justifying the authorization of the emergency use of in vitro diagnostic tests for detection of SARS-CoV-2 virus and/or diagnosis of SARS-CoV-2 virus infection under section 564(b)(1) of the Act, 21 U.S.C. section 360bbb-3(b)(1), unless the authorization is terminated or revoked sooner. We will continue to follow federal and state requirements for both notification of results and any confirmatory testing that is required by another agency. This test was developed and its performance characteristics determined by [facility]. It has not been cleared or approved by the U.S. Food and Drug Administration. Results should be used in conjunction with clinical findings, and should not form the sole basis for a diagnosis or treatment decision. Please see the following link for more information concerning this test https://www.[employer].com/test-menu/1090-ypndckwyfpa-drmvf-54-dfpm-yvn-2- rt-pc r/ Please review the Fact Sheets and FDA authorized labeling available for health care providers and patients using the following websites: https://www.fda.gov/media/556549/download https://www.fda.gov/media/876794/download NASAL STRUCTURE / Unknown 03/26/2020 10:49 AM MAINFRAME SYSTEMS PROGRAMMER 03/27/2020 10:39 AM MAINFRAME SYSTEMS PROGRAMMER Tena Cruz BACTERIOLOGY TECHNICIAN MICROBIOLOGY - GENERAL TINA COPELAND Final Result [facility] [address] [place] [address] documented in this encounter Visit Diagnoses Diagnosis Symptoms of upper respiratory infection (URI)- Primary Exposure to COVID-19 virus documented in this encounter Care Teams Filter Filler Relationship Specialty Start Date End Date Ramiro Gann MD [address] [address] PCP - General 10/14/16 documented as of this encounter
--- OUTSIDE RECORDS SUMMARY | 2024-05-05 01:11 | XMS_ITS | Encounter Summary ---
Author Organization [facility] Address [address] [place] [address]. [place], [place] [address] [place] [address] Care Team Providers Care Heel Breaster Name Role Phone Ramiro Gann MD Primary Care Provider + [phone] Ramiro Gann MD Primary Care Provider + [phone] Ramiro Gann MD Primary Care Provider + [phone] Ramiro Gann MD Primary Care Provider + [phone] Ramiro Gann MD Primary Care Provider + [phone] Ramiro Gann MD Primary Care Provider +- [phone] Encounter Details Date Type Department Care Team (Late st Contact Info) Description 03/04/2008 Abstract [facility] [address] [place] [address] Thong Marie MD [address] [id number] Social History Tobacco Use Types Packs/Day Years [...] (Late Contact Info) Description 05/18/2024 10:00 AM ACID TANK CLEANER Appointment [facility] [place] [address] Gabby Lacy, INCOME TAX EXPERT [address] [place] [address] 05/18/2024 10:30 AM ACID TANK CLEANER Appointment [facility] [address] Gabby Lacy, INCOME TAX EXPERT [address] [place] [address] documented as of this encounter Visit Diagnoses Not on filedocumented in this encounter Care Teams Heel Breaster Relationship Specialty Start Date End Date Ramiro Gann MD [address] [place] [address] PCP - General 10/14/16 Ramiro Gann MD [address] [place] [address] PCP - General 10/03/15 10/13/16 Ramiro Gann MD [address] [place] [address] PCP - General 09/26/14 10/02/15 Ramiro Gann MD [address] [place] [address] PCP - General 05/10/14 09/25/14 Ramiro Gann MD [address] [place] [address] PCP - General 05/03/14 05/09/14 Ramiro Gann MD [address] [place] [address] [place] [address] PCP - General 03/09/13 05/02/14 documented as of this encounter
--- OUTSIDE RECORDS SUMMARY | 2024-05-05 01:11 | XMS_ITS | Encounter Summary ---
Author Organization [facility] Address [address] [place] [address]. [place] [address] [place] [address] Care Team Providers Care Steward/Stewardess Banquet Name Role Phone Ramiro Gann MD Primary Care Provider + [phone] Ramiro Gann MD Primary Care Provider + [phone] Ramiro Gann MD Primary Care Provider + [phone] Ramiro Gann MD Primary Care Provider + [phone] Ramiro Gann MD Primary Care Provider +- [phone] Encounter Details Date Type Department Care Team (Late st Contact Info) Description 05/03/2014 Abstract [facility] Diagnostic Imaging [address] [place], [place] [id number] Thong Marie MD [address] [facility] 107 [place], [place] [id number] Social History Tobacco Use Types Packs/Day Years [...] st Contact Info) Description 05/18/2024 10:00 AM TREATMENT COUNSELOR Appointment [facility] [address] [address] Gabby Lacy, HAND FRETTED INSTRUMENT MAKER [address] [place] [address] 05/18/2024 10:30 AM TREATMENT COUNSELOR Appointment [facility] Mammography [address] [facility] [place] [address] Gabby Lacy, HAND FRETTED INSTRUMENT MAKER [address] [place] [address] documented as of this encounter Visit Diagnoses Diagnosis Inconclusive mammogram documented in this encounter Care Teams Steward/Stewardess Banquet Relationship Specialty Start Date End Date Ramiro Gann MD [address] [place] [address] PCP - General 10/14/16 Ramiro Gann MD [address] [place] [address] PCP - General 10/03/15 10/13/16 Ramiro Gann MD [address] [place] [address] PCP - General 09/26/14 10/02/15 Ramiro Gann MD [address] [place] [address] PCP - General 05/10/14 09/25/14 Ramiro Gann MD [address] [place] [address] PCP - General 05/03/14 05/09/14 documented as of this encounter
--- OUTSIDE RECORDS SUMMARY | 2024-05-05 01:11 | XMS_ITS | Encounter Summary ---
Author Organization [facility] Address [address] [place] [address]. [place] [address] [place] [address] Care Team Providers Care Farm Crops Teacher Name Role Phone Ramiro Gann MD Primary Care Provider +1- [phone] Encounter Details Date Type Department Care Team (Late st Contact Info) Description 10/14/2016 Abstract [facility] Diagnostic Imaging [address] [place] [address] Thong Marie MD [address] [address] Social History Tobacco Use Types Packs/Day Years [...] st Contact Info) Description 05/18/2024 10:00 AM AGRICULTURAL ENGINEERING TECHNICIAN Appointment [facility] [address] [place], [place] [address] Gabby Lacy NP [address] [place], [place] [phone] 05/18/2024 10:30 AM AGRICULTURAL ENGINEERING TECHNICIAN Appointment [facility] ONE [place], [place] [phone] Gabby Lacy, SNUFF MAKER [address] [place] [address] documented as of this encounter Visit Diagnoses Diagnosis Encounter for screening mammogram for malignant neoplasm of breast Other screening mammogram documented in this encounter Care Teams Farm Crops Teacher Relationship Specialty Start Date End Date Ramiro Gann MD [address] [address] PCP - General 10/14/16 documented as of this encounter
--- OUTSIDE RECORDS SUMMARY | 2024-05-05 01:11 | XMS_ITS | Encounter Summary ---
Author Organization [facility] Address [address] [place] [address]. [place] [address] [place] [address] Care Team Providers Care Gathering Machine Setter Name Role Phone Ramiro Gann MD Primary Care Provider +1- [phone] Ramiro Gann MD Primary Care Provider +- [phone] Encounter Details Date Type Department Care Team (Late st Contact Info) Description 10/03/2015 Abstract [facility] Diagnostic Imaging [address] [place] [address] Thong Marie MD [address] [address] Social History Tobacco Use Types Packs/Day Years [...] st Contact Info) Description 05/18/2024 10:00 AM HUMANITIES TEACHER Appointment [facility] [address] [place], [place] [address] Gabby Lacy, GLAUCOMA SPECIALIST [address] [place], [place] [phone] 05/18/2024 10:30 AM HUMANITIES TEACHER Appointment [facility] [place] [address] Gabby Lacy, GLAUCOMA SPECIALIST [address] [place] [address] documented as of this encounter Visit Diagnoses Diagnosis Encounter for screening mammogram for malignant neoplasm of breast Other screening mammogram documented in this encounter Care Teams Gathering Machine Setter Relationship Specialty Start Date End Date Ramiro Gann MD [address] [address] PCP - General 10/14/16 Ramiro Gann MD [address] [address] PCP - General 10/03/15 10/13/16 documented as of this encounter
--- OUTSIDE RECORDS SUMMARY | 2024-05-05 01:11 | XMS_ITS | Encounter Summary ---
Author Organization [facility] Address [address] [place] [address]. [place], [place] [address] [place] [address] Care Team Providers Care Manager Hris Name Role Phone Meche Gann MD Primary Care Provider +1- [phone] Reason for Visit * Imaging (Routine) - Closed Specialty Diagnoses / Procedures Referred By Contac t Referred To Contact RADIOLOGY Diagnoses Encounter for screening mammogram for malignant neoplasm of breast Procedures MG SCREENING W AVIVA WANDA MAGDAI Meche Gann MD [address] [address] Phone: tel: fax: Referral ID Status Reason Start Date Expiration Date Visits Re quested Visits Authorized [id number] Closed 12/17/2021 12/17/2022 1 1 Encounter Details Date Type Department Care Team (Latest Contact Info) Description 01/07/2022 9:31 AM CDT - 01/07/2022 11:59 PM T Hospital Encounter [facility] Mammography [address] [place] [address] Meche Gann MD [address] [address] Discharge Disposition: Home or Self Care (Routine Discharge) Social History Tobacco Use Types Packs/Day Years Used Date Smoking Tobacco: Never Assessed Comments Unknown Sex and Gender Information Value Date Recorded Sex Assigned at Not on file Legal Sex Female 6:47 PM CDT Gender Identity Not on file Sexual Orientation Not on file COVID-19 Exposure Response Date Recorded In the last 10 days, have mark anthony u been in contact with someone who was confirmed or suspected to have Coronavirus/COVID-19? No / Unsure 01/07/2022 9:30 AM CDT documented as of this encounter Plan of Treatment Upcoming Encounters Date Type Department Care Team (Late st Contact Info) Description 05/18/2024 10:00 AM RAILCAR BRAKE OPERATOR [place]ment [place] [address] Gabby Lacy, INFRASTRUCTURE SOLUTIONS ARCHITECT [address] [place], [place] [phone] 05/18/2024 10:30 AM RAILCAR BRAKE OPERATOR Appointment [facility] [place] [address] Gabby Lacy, INFRASTRUCTURE SOLUTIONS ARCHITECT [address] [place], [place] [phone] documented as of this encounter Procedures Procedure Name Priority Date/Time Associated Diagnosis Comments MG SCREENING W AVIVA WANDA DIGI Routine 01/07/2022 9:47 AM CDT Encounter for screening mammogram for malignant neoplasm of breast documented in this encounter Results * MG SCREENING W AVIVA WANDA DIGI (01/07/2022 9:47 AM CDT) Anatomical Region Laterality Modality Breast Bilateral Mammography 01/07/2022 10:4 4 AM CDT Impressions 01/07/2022 5:04 PM CDT IMPRESSION: 1. No mammographic evidence of malignancy. ??Recommend annual mammogram. 2. BI-RADS Category 2: Benign. 3. TISSUE TYPE: Category C: The breasts are heterogeneously dense, which may obscure small masses. A) ??A negative report should not delay a biopsy if a dominant or ?clinically suspicious mass is present. B) ??Adenosis and dense breasts may obscure an underlying neoplasm. C) ??Study interpreted with computer aided detection. Ordered By: MECHE GANN Interpreted By: Josias Martin, 01/07/2022 10:44 AM Narrative 01/07/2022 5:04 PM CDT IMAGING STUDIES: ??MG SCREENING W AVIVA WANDA DIGI ? DATE: ??01/07/2022 9:33 AM HISTORY: ??SCREENING ?61-year-old female for screening study. Left breast stereotactic biopsy in 2006 with benign pathology. Mother with breast cancer at 67 years old. Maternal aunt with breast cancer at 60 years old. COMPARISON: Screening mammogram 03/06/2020 and 10/25/2017. TECHNIQUE: Bilateral digital screening mammogram with CAD. ??Standard CC and MLO views. 2-D imaging and 3-D tomography. DISCUSSION: Heterogeneously dense breast parenchymal pattern limiting sensitivity of mammography. Postbiopsy marker in the left breast. Benign calcifications bilaterally. ?? No mammographically suspicious mass, microcalcification, or architectural distortion. Meche Gann MD MAMMO Final Resu lt documented in this encounter Visit Diagnoses Not on filedocumented in this encounter Care Teams Manager Hris Relationship Specialty Start Date End Date Meche Gann MD [address] [place] [address] PCP - General 10/14/16 documented as of this encounter
--- OUTSIDE RECORDS SUMMARY | 2024-05-05 01:11 | XMS_ITS | Encounter Summary ---
Author Organization [facility] Address [address] [place] [address]. [place], [place] [address] [place] [address] Care Team Providers Care Excel Developer Name Role Phone Ramiro Gann MD Primary Care Provider + [phone] Ramiro Gann MD Primary Care Provider + [phone] Ramiro Gann MD Primary Care Provider + [phone] Ramiro Gann MD Primary Care Provider + [phone] Ramiro Gann MD Primary Care Provider + [phone] Ramiro Gann MD Primary Care Provider +- [phone] Encounter Details Date Type Department Care Team (Late st Contact Info) Description 04/08/2008 Abstract [facility] Diagnostic Imaging [address] [place] [address] Thong Marie MD [address] [id number] Social History Tobacco Use Types Packs/Day Years [...] (Late Contact Info) Description 05/18/2024 10:00 AM WREATH INSPECTOR Appointment [facility] [place] [address] Gabby Lacy, FOOD SERVICE HELPER [address] [place] [address] 05/18/2024 10:30 AM WREATH INSPECTOR Appointment [facility] [address] Gabby Lacy, FOOD SERVICE HELPER [address] [place] [address] documented as of this encounter Visit Diagnoses Not on filedocumented in this encounter Care Teams Excel Developer Relationship Specialty Start Date End Date Ramiro Gann MD [address] [place] [address] PCP - General 10/14/16 Ramiro Gann MD [address] [place] [address] PCP - General 10/03/15 10/13/16 Ramiro Gann MD [address] [place] [address] PCP - General 09/26/14 10/02/15 Ramiro Gann MD [address] [place] [address] PCP - General 05/10/14 09/25/14 Ramiro Gann MD [address] [place] [address] PCP - General 05/03/14 05/09/14 Ramiro Gann MD [address] [place] [address] [place] [address] PCP - General 03/09/13 05/02/14 documented as of this encounter
--- OUTSIDE RECORDS SUMMARY | 2024-05-05 01:11 | XMS_ITS | Encounter Summary ---
Author Organization [facility] Address [address] [place] [address]. [place] [address] [place] [address] Care Team Providers Care Cvt Rn Name Role Phone Ramiro Gann MD Primary Care Provider +1- [phone] Encounter Details Date Type Department Care Team (Latest Contact Info) Description 10/25/2017 3:21 PM CDT - 10/25/2017 11:59 PM CDT Hospital Encounter [facility] Mammography [address] [place] [address] Thong Marie MD [address] [facility] 107 [place] [address] Discharge Disposition: Home or Self Care (Routine [...] st Contact Info) Description 05/18/2024 10:00 AM CUSTOM SHOEMAKER Appointment [place] [address] Gabby Lacy, INSTRUCTOR WASTEWATER TREATMENT PLANT [address] [place] [address] 05/18/2024 10:30 AM CUSTOM SHOEMAKER Appointment [facility] Mammography [address] [facility] [place] [address] Gabby Lacy, INSTRUCTOR WASTEWATER TREATMENT PLANT [address] [place], [place] [phone] documented as of this encounter Procedures Procedure Name Priority Date/Time Associated Diagnosis Comments MG SCREENING W AVIVA WANDA DIGI Routine 10/25/2017 3:43 PM CDT Screening breast examination documented in this encounter Results * MG SCREENING W AVIVA WANDA DIGI (10/25/2017 3:43 PM CDT) Anatomical Region Laterality Modality Breast Bilateral Mammography 10/26/2017 9:00 AM CDT Impressions 10/26/2017 9:04 AM CDT =====IMPRESSION:===== No mammographic findings suggestive of malignancy. ASSESSMENT: ACR BI-RADS Category 2 - Benign. RECOMMENDATION: 1: Routine screening mammogram ??bilateral ??in 1 year ? COMMENTS: ? Narrative 10/26/2017 9:04 AM CDT EXAMINATION: Digital bilateral screening mammogram with 3-D tomosynthesis EXAM DATE/TIME: 10/25/2017 3:43 PM REASON FOR EXAM: ??screening ? Family history of breast cancer. Previous benign biopsy left breast. COMPARISON: Prior mammograms dating back to 2011. TECHNIQUE: Digital screening mammography of both breasts was performed in addition to 3-D Tomosynthesis technique. This study was read with the assistance of a computer-aided detection system. TISSUE DENSITY: The breast tissue is heterogeneously dense. FINDINGS: No suspicious masses, malignant appearing calcifications, skin thickening or other abnormalities are present. ??No significant change from the prior exam. us Thong Marie MD MAMMO Final Resul t documented in this encounter Visit Diagnoses Not on filedocumented in this encounter Care Teams Cvt Rn Relationship Specialty Start Date End Date Ramiro Gann MD [address] [address] PCP - General 10/14/16 documented as of this encounter
--- OUTSIDE RECORDS SUMMARY | 2024-05-05 01:11 | XMS_ITS | Encounter Summary ---
Author Organization [facility] Address [facility] [place] [address] [place] [address] Care Team Providers Care Steam Cleaner Name Role Phone Ramiro Gann MD Primary Care Provider + [phone] Ramiro Gann MD Primary Care Provider + [phone] Ramiro Gann MD Primary Care Provider + [phone] Ramiro Gann MD Primary Care Provider + [phone] Ramiro Gann MD Primary Care Provider + [phone] Ramiro Gann MD Primary Care Provider + [phone] Encounter Details Date Type Department Care Team (Late st Contact Info) Description 04/18/2007 Abstract [facility] Diagnostic Imaging [address] [place] [address] Ewelina Desouza MD Social History Tobacco Use Types Packs/Day Years [...] st Contact Info) Description 05/18/2024 10:00 AM DIAGNOSTIC TECHNICIAN Appointment [facility] CT ONE [place], [place] [phone] Gabby Lacy, FRUIT EXPRESS AGENT [address] [place] [address] 05/18/2024 10:30 AM DIAGNOSTIC TECHNICIAN Appointment [facility] [place] [address] Gabby Lacy, FRUIT EXPRESS AGENT [address] [place] [address] documented as of this encounter Visit Diagnoses Not on filedocumented in this encounter Care Teams Steam Cleaner Relationship Specialty Start Date End Date Ramiro Gann MD [address] [place] [address] PCP - General 10/14/16 Ramiro Gann MD [address] [address] PCP - General 10/03/15 10/13/16 Ramiro Gann MD [address] [address] PCP - General 09/26/14 10/02/15 Ramiro Gann MD [address] [address] PCP - General 05/10/14 09/25/14 Ramiro Gann MD [address] [address] PCP - General 05/03/14 05/09/14 Ramiro Gann MD [address] [address] PCP - General 03/09/13 05/02/14 documented as of this encounter
--- OUTSIDE RECORDS SUMMARY | 2024-05-05 01:11 | XMS_ITS | Encounter Summary ---
Author Organization [facility] Address [address] [place] [address]. [place], [place] [address] [place] [address] Care Team Providers Care Wire Machine Operator Name Role Phone Ramiro Gann MD Primary Care Provider + [phone] Ramiro Gann MD Primary Care Provider + [phone] Ramiro Gann MD Primary Care Provider + [phone] Ramiro Gann MD Primary Care Provider + [phone] Ramiro Gann MD Primary Care Provider + [phone] Ramiro Gann MD Primary Care Provider +- [phone] Encounter Details Date Type Department Care Team (Late st Contact Info) Description 10/29/2011 Abstract [facility] Diagnostic Imaging [address] [place] [address] Tohng Marie MD [address] [id number] Social History Tobacco Use Types Packs/Day Years [...] (Late Contact Info) Description 05/18/2024 10:00 AM COKE INSPECTOR Appointment [facility] [place] [address] Gabby Lacy, PASS WORKER [address] [place] [address] 05/18/2024 10:30 AM COKE INSPECTOR Appointment [facility] [address] Gabby Lacy, PASS WORKER [address] [place] [address] documented as of this encounter Visit Diagnoses Diagnosis Other screening mammogram documented in this encounter Care Teams Wire Machine Operator Relationship Specialty Start Date End Date Ramiro Gann MD [address] [place] [address] PCP - General 10/14/16 Ramiro Gann MD [address] [place] [address] PCP - General 10/03/15 10/13/16 Ramiro Gann MD [address] [place] [address] PCP - General 09/26/14 10/02/15 Ramiro Gann MD [address] [place] [address] PCP - General 05/10/14 09/25/14 Ramiro Gann MD [address] [place] [address] PCP - General 05/03/14 05/09/14 Ramiro Gann MD [address] [place] [address] [place] [address] PCP - General 03/09/13 05/02/14 documented as of this encounter
--- OUTSIDE RECORDS SUMMARY | 2024-05-05 01:11 | XMS_ITS | Encounter Summary ---
Author Organization [facility] Address [address] [place] [address]. [place], [place] [address] [place] [address] Care Team Providers Care Corporate Lawyer Name Role Phone Ramiro Gann MD Primary Care Provider + [phone] Ramiro Gann MD Primary Care Provider + [phone] Ramiro Gann MD Primary Care Provider + [phone] Ramiro Gann MD Primary Care Provider + [phone] Ramiro Gann MD Primary Care Provider + [phone] Ramiro Gann MD Primary Care Provider +- [phone] Encounter Details Date Type Department Care Team (Late st Contact Info) Description 04/07/2010 Abstract [facility] [address] [place] [address] Thong Marie MD [address] [id number] Social History Tobacco Use Types Packs/Day Years [...] (Late Contact Info) Description 05/18/2024 10:00 AM PERITONEAL DIALYSIS REGISTERED NURSE Appointment [facility] [place] [address] Gabby Lacy, COMPUTER NETWORK AND SYSTEMS ENGINEER [address] [place] [address] 05/18/2024 10:30 AM PERITONEAL DIALYSIS REGISTERED NURSE Appointment [facility] [place] [address] Gabby Lacy, COMPUTER NETWORK AND SYSTEMS ENGINEER [address] [place] [address] documented as of this encounter Visit Diagnoses Diagnosis Other screening mammogram documented in this encounter Care Teams Corporate Lawyer Relationship Specialty Start Date End Date Ramiro Gann MD [address] [place] [address] PCP - General 10/14/16 Ramiro Gann MD [address] [place] [address] PCP - General 10/03/15 10/13/16 Ramiro Gann MD [address] [place] [address] PCP - General 09/26/14 10/02/15 Ramiro Gann MD [address] [place] [address] PCP - General 05/10/14 09/25/14 Ramiro Gann MD [address] [place] [address] PCP - General 05/03/14 05/09/14 Ramiro Gann MD [address] [place] [address] [place] [address] PCP - General 03/09/13 05/02/14 documented as of this encounter
--- OUTSIDE RECORDS SUMMARY | 2024-05-05 01:11 | XMS_ITS | Encounter Summary ---
Author Organization [facility] Address [address] [place] [address]. [place], [place] [address] [place] [address] Care Team Providers Care Engineering Supervisor Name Role Phone Ramiro Gann MD Primary Care Provider +1- [phone] Reason for Visit * Imaging (Routine) - Closed Specialty Diagnoses / Procedures Referred By Contac t Referred To Contact RADIOLOGY Diagnoses Encounter for screening mammogram for malignant neoplasm of breast Procedures MG SCREENING W AVIVA WANDA DIGI Ramiro Gann MD [address] [address] Phone: tel: fax: Referral ID Status Reason Start Date Expiration Date Visits Re quested Visits Authorized [id number] Closed 01/25/2020 02/23/2021 1 1 Encounter Details Date Type Department Care Team (Latest Contact Info) Description 03/06/2020 2:30 PM CDT - 03/06/2020 11:59 PM CDT Hospital Encounter [facility] Mammography [address] [place] [address] Ramiro Gann MD [address] [address] Discharge Disposition: Home or Self [...] st Contact Info) Description 05/18/2024 10:00 AM GARAGE MANAGER Appointment [place] [address] Gabby Lacy, PROSTHETICS TECHNICIAN [address] [place], [place] [id number] 05/18/2024 10:30 AM GARAGE MANAGER Appointment [facility] [address] Gabby Lacy, PROSTHETICS TECHNICIAN [address] [place], [place] [phone] documented as of this encounter Procedures Procedure Name Priority Date/Time Associated Diagnosis Comments MG SCREENING W AVIVA WANDA DIGI Routine 03/06/2020 3:01 PM CDT Encounter for screening mammogram for malignant neoplasm of breast documented in this encounter Results * MG SCREENING W AVIVA WANDA DIGI (03/06/2020 3:01 PM CDT) Anatomical Region Laterality Modality Breast Bilateral Mammography 03/06/2020 4:02 PM CDT Impressions 03/06/2020 4:04 PM CDT =====IMPRESSION:===== No mammographic findings suggestive of malignancy. ASSESSMENT: ACR BI-RADS CATEGORY 1 - NEGATIVE. RECOMMENDATION: 1: Routine screening mammogram ??bilateral ??in 1 year Narrative 03/06/2020 4:04 PM CDT EXAMINATION: Digital bilateral screening mammogram with 3-D tomosynthesis EXAM DATE/TIME: 03/06/2020 2:40 PM REASON FOR EXAM: ??Routine screening. ??Previous benign left breast biopsy. Family history of breast cancer in her mother and aunts. COMPARISON: 10/25/2017, 10/14/2016 TECHNIQUE: Digital screening mammography of both breasts was performed in addition to 3-D Tomosynthesis technique. This study was read with the assistance of a computer-aided detection system. TISSUE DENSITY: The breast tissue is heterogeneously dense. FINDINGS: No suspicious masses, malignant appearing calcifications, skin thickening or other abnormalities are present. Left breast biopsy clip noted. ??No significant change from the prior exam. us Ramiro Gann MD MAMMO Final Resu lt documented in this encounter Visit Diagnoses Not on filedocumented in this encounter Care Teams Engineering Supervisor Relationship Specialty Start Date End Date Ramiro Gann MD [address] [address] PCP - General 10/14/16 documented as of this encounter
--- OUTSIDE RECORDS SUMMARY | 2024-05-05 01:11 | XMS_ITS | Encounter Summary ---
Author Organization [facility] Address [address] [place] [address]. [place], [place] [address] [place] [address] Care Team Providers Care Dry Starch Operator Name Role Phone Ramiro Gann MD Primary Care Provider + [phone] Ramiro Gann MD Primary Care Provider + [phone] Ramiro Gann MD Primary Care Provider + [phone] Ramiro Gann MD Primary Care Provider + [phone] Ramiro Gann MD Primary Care Provider + [phone] Ramiro Gann MD Primary Care Provider +- [phone] Encounter Details Date Type Department Care Team (Late st Contact Info) Description 03/14/2009 Abstract [facility] [address] [place] [address] Thong Marie MD [address] [id number] Social History Tobacco Use Types Packs/Day Years [...] (Late Contact Info) Description 05/18/2024 10:00 AM ELECTION WATCHER Appointment [facility] [address] [place] [address] Gabby Lacy, CALL CENTER TRAINER [address] [place] [address] 05/18/2024 10:30 AM ELECTION WATCHER Appointment [facility] [address] Gabby Lacy, CALL CENTER TRAINER [address] [place] [address] documented as of this encounter Visit Diagnoses Not on filedocumented in this encounter Care Teams Dry Starch Operator Relationship Specialty Start Date End Date Ramiro Gann MD [address] [place] [address] PCP - General 10/14/16 Ramiro Gann MD [address] [place] [address] PCP - General 10/03/15 10/13/16 Ramiro Gann MD [address] [place] [address] PCP - General 09/26/14 10/02/15 Ramiro Gann MD [address] [place] [address] PCP - General 05/10/14 09/25/14 Ramiro Gann MD [address] [place] [address] PCP - General 05/03/14 05/09/14 Ramiro Gann MD [address] [place] [address] [place] [address] PCP - General 03/09/13 05/02/14 documented as of this encounter
--- OUTSIDE RECORDS SUMMARY | 2024-05-05 01:11 | XMS_ITS | Encounter Summary ---
Author Organization [facility] Address [address] [place] [address]. [place], [place] [address] [place] [address] Care Team Providers Care Office Cashier Name Role Phone Ramiro Gann MD Primary Care Provider +[phone]- [phone] Encounter Details Date Type Department Care Team (Late st Contact Info) Description 03/26/2020 10:30 AM MACHINE TAPER Laboratory Only [facility] Medicine [address], [address] [place] [id number] Social History Tobacco Use Types Packs/Day Years [...] st Contact Info) Description 05/18/2024 10:00 AM MACHINE TAPER Appointment [place] [address] Gabby Lacy, REED REPAIRER [address] [place], [place] [id number] 05/18/2024 10:30 AM MACHINE TAPER Appointment [facility] [place] [address] Gabby Lacy, REED REPAIRER [address] [place] [address] documented as of this encounter Procedures Procedure Name Priority Date/Time Associated Diagnosis Comments CORONAVIRUS (COVID 19) Routine 03/26/2020 10:49 AM MACHINE TAPER Symptoms of upper respiratory infection (URI) Exposure to COVID-19 virus documented in this encounter Results * (ABNORMAL) CORONAVIRUS (COVID 19) [facility] (03/26/2020 10:49 AM MACHINE TAPER) CORONAVIRUS SARS COV 2 PCR (RESP) Detected (AA) Not Detected [facility] Comment: This test has not [...] developed and its performance characteristics determined by [facility]. It has not been cleared or approved by the U.S. Food and Drug Administration. Results should be used in conjunction with clinical findings, and should not form the sole basis for a diagnosis or treatment decision. Please see the following link for more information concerning this test https://www.[employer].com/test-[email or web address]- rt-pc r/ Please review the Fact Sheets and FDA authorized labeling available for health care providers and patients using the following websites: https://www.fda.gov/media/773836/download https://www.fda.gov/media/619182/download NASAL STRUCTURE / Unknown 03/26/2020 10:49 AM MACHINE TAPER 03/27/2020 10:39 AM MACHINE TAPER Tena Cruz REED REPAIRER MICROBIOLOGY - GENERAL ORDE DINORAH Final Result [facility] [address] [place] [address] documented in this encounter Visit Diagnoses Diagnosis Symptoms of upper respiratory infection (URI) Exposure to COVID-19 virus documented in this encounter Care Teams Office Cashier Relationship Specialty Start Date End Date Ramiro Gann MD [address] [address] PCP - General 10/14/16 documented as of this encounter
--- OUTSIDE RECORDS SUMMARY | 2024-05-05 01:11 | XMS_ITS | Encounter Summary ---
Author Organization [facility] Address [facility]ly [facility] [address] [place] [address] Care Team Providers Care Carroting Machine Operator Name Role Phone Ramiro Gann MD Primary Care Provider + [phone] Ramiro Gann MD Primary Care Provider + [phone] Ramiro Gann MD Primary Care Provider +- [phone] Encounter Details Date Type Department Care Team (Late st Contact Info) Description 09/26/2014 Abstract [facility] [address] [place], [place] [address] Thong Marie MD [address] [facility] [address] [place] [address] Social History Tobacco Use Types Packs/Day Years [...] st Contact Info) Description 05/18/2024 10:00 AM RESERVATION MANAGER Appointment [facility] [address] [facility] [place] [address] Gabby Lacy, ASSISTANT OPERATIONS MANAGER [address] [place] [address] 05/18/2024 10:30 AM RESERVATION MANAGER Appointment [facility] Mammography [address] [facility] [place] [address] Gabby Lacy, ASSISTANT OPERATIONS MANAGER [address] [place] [address] documented as of this encounter Visit Diagnoses Diagnosis Abnormal mammogram Abnormal mammogram, unspecified documented in this encounter Care Teams Carroting Machine Operator Relationship Specialty Start Date End Date Ramiro Gann MD [address] [address] PCP - General 10/14/16 Ramiro Gann MD [address] [address] PCP - General 10/03/15 10/13/16 Ramiro Gann MD [address] [address] PCP - General 09/26/14 10/02/15 documented as of this encounter
--- OUTSIDE RECORDS SUMMARY | 2024-05-05 01:19 | XMS_ITS | Encounter Summary ---
Author Organization [facility] Address [address] [place] [address] Care Team Providers Care Toe Closing Machine Tender Name Role Phone Unavailable Primary Care Provider Unavailabl e Encounter Details Date Type Department Care Team (Late st Contact Info) Description 06/02/2021 Lab Requisition [facility] Community Testing [facility] [address] [place] [address] Manan Pearce MD [address] [place] [address] [address] [place], [place] [address] Social History Tobacco Use Types Packs/Day Years Used Date Smoking Tobacco: Never Assessed Comments Unknown Sex and Gender Information Value Date Recorded Sex Assigned at Not on file Legal Sex Female 10:13 AM GYROSCOPIC INSTRUMENT MECHANIC Gender Identity Not on file Sexual Orientation Not on file documented as of this encounter Plan of Treatment Not on file documented as of this encounter Procedures Procedure Name Priority Date/Time Associated Diagnosis Comments SARS-COV-2 PCR [facility] ONLY Routine 06/02/2021 10:24 AM GYROSCOPIC INSTRUMENT MECHANIC documented in this encounter Visit Diagnoses Not on filedocumented in this encounter
--- OUTSIDE RECORDS SUMMARY | 2024-05-05 01:19 | XMS_ITS | Clinical Summary ---
Author Organization [facility] Care Team Providers Care Rubber Engraver Name Role Phone Unavailable Primary Care Provider Unavailabl e Social History Tobacco Use Types Packs/Day Years Used Date Smoking Tobacco: Never Assessed Comments Unknown Sex and Gender Information Value Date Recorded Sex Assigned at Not on file Legal Sex Female 10:13 AM FOWL BLOOD TESTER Gender Identity Not on file Sexual Orientation Not on file Plan of Treatment Health Maintenance Due Date Last Done Comments Hepatitis C Virus (HCV) Screening 1961 TdaP Immunization 1961 Pap Smear 1982 Cervical Cancer Screening (CCS) 09/30/1991 HPV/Cotest 09/30/1991 Colonoscopy 2006 Colorectal Cancer Screening 2006 Cologuard 09/30/2011 Immunochemical Fecal Occult Blood 09/30/2011 Mammogram 09/30/2011 Zoster Immunization (1 of 2) 09/30/2011 SARS-COV-2 Immunization ( season) 2023 04/28/2021, 08/26/2020, 07/29/2020 Influenza Immunization (Seas on Ended) 2024 Hepatitis B Immunization Aged Out No longer eligible based on patient's age to complete this topic Meningococcal Immunization (ACWY) Aged Out No longer eligible b ased on patient's age to complete this topic Pneumococcal Immunization Combined Aged Out No longer eligible b ased on patient's age to complete this topic Rotavirus Immunization Aged Out No lo nger eligible based on patient's age to complete this topic
--- OUTSIDE RECORDS SUMMARY | 2024-05-05 01:19 | XMS_ITS | Encounter Summary ---
Author Organization [facility] Address [address] [place] [address] Care Team Providers Care Business Intelligence Reporting Analyst Name Role Phone Unavailable Primary Care Provider Unavailabl e Encounter Details Date Type Department Care Team (Late st Contact Info) Description 06/02/2021 10:30 AM MOLD CARPENTER Rapid Evaluation [facility] Community Testing [facility] [address] [place] [address] Social History Tobacco Use Types Packs/Day Years Used Date Smoking Tobacco: Never Assessed Comments Unknown Sex and Gender Information Value Date Recorded Sex Assigned at Not on file Legal Sex Female 10:13 AM MOLD CARPENTER Gender Identity Not on file Sexual Orientation Not on file documented as of this encounter Plan of Treatment Not on file documented as of this encounter Visit Diagnoses Not on filedocumented in this encounter
== END 2024-04-29 22:32 | disposition home or self-care (01) ==
PROVIDERS: Emergency Provider Student in an Organized Health Care Education/Training Program; PCP Nurse Practitioner Family
DX: S61.451A Open bite of right hand, initial encounter (principal); Z23 Encounter for immunization; Z87.891 Personal history of nicotine dependence; W54.0XXA Bitten by dog, initial encounter
CPT/HCPCS: 12005; 12006; 12032; 73110; 73130; 73200; 90471; 90715; 96374; 96375; 99284; A9270; J2003; J2270; J2405